=== PATIENT | female | born 1960 | race Hispanic/Latino ===

== ENCOUNTER 2019-11-05 14:06 | Inpatient (IN) | payer MEDICARE ==
[~2019-11-05] VITALS: Ht 157.5 cm; Wt 91.7 kg
[~2019-11-05 14:06] MED LIST: ATORVASTATIN PO; CARVEDILOL12.5 MG PO; ELIQUIS5 MG PO; GLIMEPIRIDE2 MG PO; LEVOTHYROXINE75 MCG PO; NIFEDIPINE ER30 M1 PO; NOVOLIN 70100 UNIT/3 SQ; PANTOPRAZOLE SO20 MG PEG; RENVELA0.8 GM PO; SUCRALFATE1 GM PO
[2019-11-05] MEDS ORDERED: DIATRIZOATE MEGL/DIATRIZOA SOD 30 ML BTL PO ONE (14:45)
[2019-11-05 14:48] LABS: BASOPHILS % 0.6 % (0.0-1.0); EOSINOPHILS # (AUTO) 0.1 (0.0-0.4); EOSINOPHILS % 2.2 % (0.0-6.0); HEMATOCRIT 26.4 % (34.2-44.1); HEMOGLOBIN 8.9 g/dL (12.0-16.0); LYMPHOCYTES # (AUTO) 0.9 (1.0-3.2); MEAN CORPUSCULAR HEMOGLOBIN 32.5 pg (28-32); MEAN CORPUSCULAR HGB CONC 33.7 g/dL (31-35); MEAN CORPUSCULAR VOLUME 96.4 fL (81-99); MONOCYTES # (AUTO) 0.5 (0.2-0.8); MONOCYTES % 7.1 % (4.4-11.3); NEUTROPHILS # (AUTO) 4.9 (2.1-6.9); NEUTROPHILS % 75.6 % (38.7-80.0); PLATELET COUNT 124 x10e3/uL (140-360); RED BLOOD COUNT 2.74 x10e6/uL (3.6-5.1); RED CELL DISTRIBUTION WIDTH 14.7 % (11.7-14.4)
[2019-11-05 15:10] LABS: PROTHROMBIN TIME 13.8 seconds (11.9-14.5)
[2019-11-05 15:14] LABS: CREATINE KINASE MB 8.1 ng/mL (0-5.0)
[2019-11-05 15:16] LABS: ALBUMIN/GLOBULIN RATIO 1.4 (0.8-2.0); ANION GAP 28.6 mmol/L (8-16); CALCIUM 8.5 mg/dL (8.4-10.2); CREATININE, SERUM 19.16 mg/dL (0.57-1.11)
[2019-11-05 15:20] LABS: POTASSIUM 6.6 mmol/L (3.5-5.1)
[2019-11-05] MEDS ORDERED: ALBUTEROL SULF 0.083% NEB SOLN 3 ML NEB NEB STA (15:20)
[2019-11-05] MEDS ORDERED: DEXTROSE 50% SYRINGE 50 ML IV STA (15:20)
[2019-11-05] MEDS ORDERED: CALCIUM CHLORIDE 10% 1.36 MEQ/ML 10ML SYR IV STA (15:20)
[2019-11-05] MEDS ORDERED: SODIUM BICARBONATE 8.4% INJ 50 ML SYR IV STA (15:20)
[2019-11-05] MEDS ORDERED: INSULIN REGULAR, HUMAN 100 UNIT/1 ML 3ML VIAL IV ONE (15:30)
[2019-11-05] MEDS ORDERED: SODIUM CHLORIDE FLUSH 10 ML SYR IV PRN (15:30)
[2019-11-05] MEDS ORDERED: SOD POLYSTYRENE SULFONATE SUSP 15 GM/60 ML BTL PO ONE (15:30)
[2019-11-05] MEDS ORDERED: ASPIRIN 81 MG CHEW TAB PO ONE (15:30)
[2019-11-05] MEDS ORDERED: SODIUM CHLORIDE 0.9% 100 ML ONE (15:42)
[2019-11-05] MEDS ORDERED: CALCIUM GLUCONATE 10% INJ 0.465 MEQ/ML VIAL ONE (15:43)
[2019-11-05] MEDS ORDERED: CALCIUM CHLORIDE 13.6 MEQ in SODIUM CHLORIDE 0.9% 100 ML IV ONE (15:45)
[2019-11-05 16:12] LABS: INFLUENZAE A&B ANTIGEN (RAPID) NEGATIVE (NEGATIVE); STREPTOCOCCUS GRP A ANTIGEN NEGATIVE (NEGATIVE)
--- NOTE | 2019-11-05 17:20 | NUR ---
Recvd patient from ER, AAOx3, Mauritanian speaking, Dialysis nurse aware, patient not in any resp distress, talked to Dr Orlando he said restart her home medications for elevated BP
[2019-11-05 17:21] VITALS: BP 214/95
[2019-11-05 17:30] VITALS: BP 190/85
[2019-11-05] MEDS ORDERED: NON-FORMULARY MEDICATION (Pantoprazole Sodium 40 MG) PEG SCH (17:30)
--- NOTE | 2019-11-05 17:35 | Diagnostic Imaging Report ---
CT of the abdomen and pelvis History: Diarrhea, nausea, vomiting Comparison: None available. Technique: Multidetector CT scanning of the abdomen and pelvis was performed from the level of the lung bases to the inferior pubic ramus, without IV contrast and with oral contrast. DOSE REDUCTION: The examination was performed according to departmental dose-optimization program which includes automated exposure control, adjustment of the mA and/or kV according to patient size and/or use of iterative reconstruction technique. Discussion: The lung bases demonstrate dependent atelectasis. There is a small right pleural effusion. No focal hepatic lesions are identified. The gallbladder is present nondistended. No radiopaque gallstones are identified. There is no intrahepatic or extrahepatic biliary dilatation. The spleen is within normal limits. The bilateral adrenal glands are unremarkable. The pancreas is homogeneous in attenuation. There is no pancreatic ductal dilatation or peripancreatic inflammatory stranding. The kidneys are atrophic. There is no evidence of hydronephrosis or obstructing kidney stones. The stomach, small, and large bowel are nondistended. There is mild focal wall thickening of the cecum which may be secondary to colitis. There are scattered colonic diverticula without evidence of acute diverticulitis. There is no free intraperitoneal air. There is no ascites. The abdominal aorta is of normal course and caliber. The urinary bladder is within normal limits. The uterus is absent. There are no acute osseous abnormalities. IMPRESSION: 1. Mild wall thickening of the cecum which may be secondary to colitis. 2. Atrophic kidneys. 3. Colonic diverticulosis without evidence of acute diverticulitis. 4. Small right pleural effusion. Signed by: Maxi Chavira MD on 11/05/2019 5:32 PM
--- NOTE | 2019-11-05 17:35 | Diagnostic Imaging Report ---
Chest, portable AP view History: Shortness of breath Comparison: No comparisons available for review IMPRESSION: The cardiac silhouette is magnified by portable technique. The lungs demonstrate diffuse interstitial prominence which is likely secondary to edema. Bibasilar atelectasis is present. No pneumothorax. Signed by: Maxi Chavira MD on 11/05/2019 5:31 PM
[2019-11-05] MEDS: NIFEDIPINE CR 30 MG TAB PO SCH (18:00)
[2019-11-05] MEDS: SEVELAMER CARBONATE 800 MG TAB PO SCH ×2 (18:00→23:51)
[2019-11-05] MEDS: CARVEDILOL 12.5 MG TAB PO SCH (18:00)
[2019-11-05] MEDS ORDERED: SODIUM CHLORIDE 0.9% 1000ML 2,000 ML ONE (18:16)
--- NOTE | 2019-11-05 18:27 | NUR ---
PATIENT IS ON DIALYSIS NOW, HOLDING BP MEDICATIONS
--- NOTE | 2019-11-05 19:00 | NUR ---
RECEIVED THE PATIENT IN REPORT.PATIENT IS ON DIALYSIS RIGHT NOW.
[2019-11-05 20:37] VITALS: BP 190/99
[2019-11-05 20:43] VITALS: BP 199/99
[2019-11-05] MEDS ORDERED: ATORVASTATIN 40 MG TAB PO SCH (21:00)
[2019-11-05] MEDS ORDERED: NON-FORMULARY MEDICATION ([Atorvastatin] 80 MG) PO SCH (21:00)
[2019-11-05 22:18] LABS: CREATINE KINASE MB 6.2 ng/mL (0-5.0)
[2019-11-05] MEDS: METOPROLOL TARTRATE INJ 1 MG/ML VIAL IV PRN (23:50)
[2019-11-05] MEDS: SUCRALFATE 1 GM TAB PO SCH (23:51)
[2019-11-05] MEDS: PANTOPRAZOLE SOD 40 MG TABEC PO SCH (23:51)
--- NOTE | 2019-11-05 23:51 | NUR ---
Dialysis completed.3 litre removed.Bp noted 198/82.notified to .received new orders.implemented.keep monitor the patient.
[2019-11-05 23:56] VITALS: BP 198/82
[2019-11-06] VITALS (7 sets, daily range): BP systolic 143–204; BP diastolic 65–98
[2019-11-06] MEDS: METOPROLOL TARTRATE INJ 1 MG/ML VIAL IV PRN ×3 (05:27→11:31)
[2019-11-06] MEDS: LEVOTHYROXINE SODIUM 75 MCG TAB PO SCH (05:35)
[2019-11-06 05:43] LABS: BASOPHILS # (AUTO) 0.1 (0.0-0.1); EOSINOPHILS # (AUTO) 0.1 (0.0-0.4); HEMATOCRIT 27.4 % (34.2-44.1); HEMOGLOBIN 9.2 g/dL (12.0-16.0); LYMPHOCYTES # (AUTO) 0.7 (1.0-3.2); LYMPHOCYTES % 11.9 % (18.0-39.1); MEAN CORPUSCULAR HEMOGLOBIN 32.3 pg (28-32); MEAN CORPUSCULAR HGB CONC 33.6 g/dL (31-35); MEAN CORPUSCULAR VOLUME 96.1 fL (81-99); MONOCYTES # (AUTO) 0.6 (0.2-0.8); MONOCYTES % 9.4 % (4.4-11.3); NEUTROPHILS # (AUTO) 4.5 (2.1-6.9); NEUTROPHILS % 75.4 % (38.7-80.0); PLATELET COUNT 121 x10e3/uL (140-360); RED BLOOD COUNT 2.85 x10e6/uL (3.6-5.1); RED CELL DISTRIBUTION WIDTH 14.6 % (11.7-14.4)
[2019-11-06 06:04] LABS: ALBUMIN 3.6 g/dL (3.5-5.0); ALBUMIN/GLOBULIN RATIO 1.3 (0.8-2.0); ANION GAP 17.7 mmol/L (8-16); CALCIUM 8.9 mg/dL (8.4-10.2); CREATININE, SERUM 9.1 mg/dL (0.57-1.11); POTASSIUM 4.7 mmol/L (3.5-5.1)
--- NOTE | 2019-11-06 06:08 | NUR ---
H&P cc: fatigue PCP Carl Orlando MD, PhD. HPI: 58yoF, on HD for ESRD, developed generalized fatigue, with hyperkalemia and intractable N/V/D. Found to have acute colitis. PMH: ESRD on HD, CKD5 due to DM2, Hypertensive heart ds, HLD, hypothyroidism, CAD, OA, AOCD, s/p blood transfusion PSHx: appendectomy, hysterectomy, ALlergies; see emr FH/SH; no illicits; no etoh Meds; see MAR ROS: no f/c/s/VILLARREAL/cp/sob/dizziness/skin rash/back pain/vision changes. v/s revd PE tired appearing anicteric ns1s2 mod bs soft nt nd no e/t skin dry n. affect right arm bruit/fistula a&ox3; serna labs/meds: revd A/P: Hyperkalemia - needs HD; nephr consult Acute colitis- flagyl/ceftriaxone Acute bacterial diarrhea- flagyl/ceftriaxone Pulmonary edema CKD5 due to Dm2- hab1c/lipids ESRD on HD- HD per nephr Thrombocytopenia- avoid heparin AOCD- monitor Hypertensive heart ds- restart home meds Hypothyroidism- synthroid CAD- BB/statin Prop: apixaban, ppi Carl Orlando MD, PhD.
[2019-11-06] MEDS: CARVEDILOL 12.5 MG TAB PO SCH ×2 (06:11→16:50)
--- NOTE | 2019-11-06 06:17 | NUR ---
BP NOTED 180/93 OR 7O.COREG 25 MG PO GIVEN.KEEP MONITOR THE PATIENT.
[2019-11-06 06:31] LABS: CREATINE KINASE MB 3.4 ng/mL (0-5.0)
[2019-11-06 07:04] LABS: CHOL/HDL RATIO 3.4 (3.0-3.6)
[2019-11-06] MEDS ORDERED: INSULIN ASPART 70/30 100 UNITS/ML VIAL SC SCH (07:30)
[2019-11-06] MEDS ORDERED: GLIMEPIRIDE 2 MG TAB PO SCH (08:00)
[2019-11-06] MEDS ORDERED: INSULIN NPH HUM SQ SCH (08:00)
[2019-11-06] MEDS ORDERED: [UNRECOGNIZED DRUG - OTHER] SQ SCH (08:00)
[2019-11-06] MEDS ORDERED: REG INSULIN SQ SCH (08:00)
[2019-11-06] MEDS: SUCRALFATE 1 GM TAB PO SCH ×3 (08:09→16:50)
[2019-11-06] MEDS: SEVELAMER CARBONATE 800 MG TAB PO SCH ×4 (08:10→20:59)
[2019-11-06] MEDS: APIXABAN 5 MG TABLET PO SCH ×2 (08:10→16:50)
[2019-11-06] MEDS: PANTOPRAZOLE SOD 40 MG TABEC PO SCH ×2 (08:11→20:59)
[2019-11-06] MEDS: NIFEDIPINE CR 30 MG TAB PO SCH ×2 (08:11→16:50)
[2019-11-06] MEDS: HUMULIN 70/30 VIAL SQ SCH ×2 (08:20→16:30)
[2019-11-06] MEDS ORDERED: ONDANSETRON HCL INJ 2MG/ML 2ML 2 MG/ML VIAL IV PRN (08:45)
[2019-11-06] MEDS ORDERED: SODIUM CHLORIDE 0.9% 250ML 250 ML ONE (09:13)
[2019-11-06] MEDS: CEFTRIAXONE SOD 1 GM/NS 50 ML 50 ML IV SCH (09:24)
--- NOTE | 2019-11-06 09:40 | NUR ---
ASSESSMENT: No concerns expressed Sprinkler Worker provided pastoral presence, prayer, hospitality, and supportive listening. WHITNEY SHAH Sprinkler Worker Spiritual Care Department O: [phone]
[2019-11-06] MEDS: METRONIDAZOLE 250MG/NS 50ML 50 ML IV SCH ×2 (10:20→20:59)
--- NOTE | 2019-11-06 13:44 | Consultation ---
DATE OF CONSULTATION: 11/06/2019 HISTORY OF PRESENT ILLNESS: A 59-year-old female, apparently missed 2 sessions of dialysis, presented with weakness, nausea, vomiting, cough, and shortness of breath. Her initial labs show white count 6.4, hemoglobin 8.9. Her potassium level was found to be 6.6 with a bicarb of 14, creatinine of 19.6, and a glucose level 244. Total bilirubin of 0.8. LFTs within normal range. CK of 219. Troponin I of 0.038. The patient was urgently dialyzed and currently, she is still nauseated. She is complaining of nausea and vomiting more than cough. She denies fever and chills. Denies any abdominal pain, but states it is hurting because she has been throwing up. Otherwise, workup in ER included a chest x-ray and a CT scan, shows evidence of possible colitis in the cecal area, gallbladder present, not distended. No radiopaque gallstones identified. Pancreas within normal range. ALLERGIES: NO APPARENT DRUG ALLERGIES. CURRENT MEDICATIONS: The patient is on Zofran p.r.n., ceftriaxone 1 g IV q.24, Flagyl IV q.12, albuterol Atrovent nebulizer, atorvastatin 80 mg at bedtime, which I am going to stop right now, Eliquis 5 mg b.i.d., carvedilol 25 b.i.d., glimepiride 4 mg p.o. b.i.d., which I am going to stop. The patient is not eating and is on insulin sliding scale. She is on nifedipine 60 b.i.d., ondansetron p.r.n., pantoprazole p.r.n., Renagel with meals, Carafate 1 g p.o. before meals, and levothyroxine 75 mcg daily. SOCIAL HISTORY: The patient does not smoke or drink. PAST MEDICAL HISTORY: Type 2 diabetes, hypothyroidism, hypertension, anemia, chronic kidney disease, and end-stage renal disease. LABORATORY DATA: Repeat labs shows resolution of hyperkalemia. Serum sodium was 139, potassium 4.7, bicarbonate 25, and creatinine 9.1. LFTs within normal range. PHYSICAL EXAMINATION: GENERAL: Awake, alert, and oriented x3, sitting up, in no apparent distress. VITAL SIGNS: Blood pressure 174/74, pulse is 67, afebrile. HEAD AND NECK: Cornea clear. Oral mucosa moist. LUNGS: Relatively clear. HEART: S1 and S2 audible. ABDOMEN: Soft and nontender. No apparent visceromegaly. Distended abdomen. EXTREMITIES: Lower extremity, no edema. IMPRESSION AND PLAN: 1. End-stage renal disease and hyperkalemia. No clear-cut evidence of pneumonia. 2. Ongoing nausea and vomiting. I will send an amylase and lipase. 3. Hypertension, poorly controlled, but better. Medications adjusted above. Consider GI evaluation. I will give one dose of Phenergan 12.5 mg IV x1 now. Send an amylase, lipase, scheduled dialysis tomorrow. Renal diet. Please see orders. MD TRELL Guzman/VALENTINO /[id number]
[2019-11-06] MEDS ORDERED: PROMETHAZINE 12.5MG/ NACL 0.9% 12.5 MG/50 ML BAG IV ONE (13:50)
[2019-11-06 15:08] LABS: AMYLASE 56 U/L (25-125); LIPASE 28 U/L (8-78)
[2019-11-06 15:17] LABS: CREATINE KINASE MB 3.4 ng/mL (0-5.0)
[2019-11-07] VITALS (8 sets, daily range): BP systolic 115–172; BP diastolic 56–75
--- NOTE | 2019-11-07 01:30 | NUR ---
Sleeping in the bed.stable condition.phone and call light within reach.
[2019-11-07] MEDS: LEVOTHYROXINE SODIUM 75 MCG TAB PO SCH (05:43)
--- NOTE | 2019-11-07 06:00 | NUR ---
BLOOD SUGAR IS 48 .PROVIDED APPLE JUICE.KEEP MONITOR THE PATIENT.
--- NOTE | 2019-11-07 06:09 | NUR ---
IM- progress note O/N see below ROS: no f/c/s/VILLARREAL/cp/sob/dizziness/skin rash/back pain/vision changes. v/s revd PE tired appearing anicteric ns1s2 mod bs soft nt nd no e/t skin dry n. affect right arm bruit/fistula a&ox3; serna labs/meds: revd A/P: Hyperkalemia - needs HD; nephr consult Acute colitis- flagyl/ceftriaxone Acute bacterial diarrhea- flagyl/ceftriaxone Pulmonary edema CKD5 due to Dm2- hab1c/lipids ESRD on HD- HD per nephr Thrombocytopenia- avoid heparin AOCD- monitor Hypertensive heart ds- restart home meds Hypothyroidism- synthroid CAD- BB/statin Prop: apixaban, ppi 3-25 improving; cont care; Carl Orlando MD, PhD.
--- NOTE | 2019-11-07 07:00 | NUR ---
Bed side shift report given to oncoming Rn.stable condition.
--- NOTE | 2019-11-07 07:30 | NUR ---
PATIENT IS ALERT, AWAKE, AND IN STABLE CONDITION WITH NO S/S OF RESPIRATORY DISTRESS. NO PAIN VOICED. PATIENT IS VISUALLY IMPAIRED. TELEMETRY APPLIED. PATIENT IS DUE TO HAVE DIALYSIS TODAY (CONSENT SIGNED BY PREVIOUS SHIFT). CALL LIGHT IS WITHIN REACH, PATIENT INSTRUCTED TO CALL FOR ASSISTANCE NEEDED.
[2019-11-07] MEDS: CEFTRIAXONE SOD 1 GM/NS 50 ML 50 ML IV SCH (08:00)
[2019-11-07] MEDS: NIFEDIPINE CR 30 MG TAB PO SCH ×2 (08:18→16:15)
[2019-11-07] MEDS: CARVEDILOL 12.5 MG TAB PO SCH ×2 (08:18→16:13)
[2019-11-07] MEDS: HUMULIN 70/30 VIAL SQ SCH ×2 (08:20→16:48)
[2019-11-07] MEDS: SUCRALFATE 1 GM TAB PO SCH ×3 (08:20→16:13)
[2019-11-07] MEDS: APIXABAN 5 MG TABLET PO SCH ×2 (08:20→16:13)
[2019-11-07] MEDS: PANTOPRAZOLE SOD 40 MG TABEC PO SCH ×2 (08:20→21:00)
[2019-11-07] MEDS: SEVELAMER CARBONATE 800 MG TAB PO SCH ×4 (08:20→21:00)
[2019-11-07] MEDS: METRONIDAZOLE 250MG/NS 50ML 50 ML IV SCH ×2 (10:21→21:00)
[2019-11-07 11:52] LABS: ANION GAP 18.9 mmol/L (8-16); CALCIUM 8.1 mg/dL (8.4-10.2); CREATININE, SERUM 11.63 mg/dL (0.57-1.11)
[2019-11-07 12:03] LABS: POTASSIUM 5.9 mmol/L (3.5-5.1)
--- NOTE | 2019-11-07 14:10 | NUR ---
PATIENT STARTED DIALYSIS- PATIENT IN STABLE CONDITION WITH NO S/S OF RESPIRATORY DISTRESS.
--- NOTE | 2019-11-07 18:50 | NUR ---
PATIENT COMPLETED DIALYSIS: 3 LITERS REMOVED. PATIENT IN STABLE CONDITION WITH NO S/S OF RESPIRATORY DISTRESS; NO PAIN VOICED. CALL LIGHT IS WITHIN REACH, PATIENT INSTRUCTED TO CALL FOR ASSISTANCE NEEDED. BEDSIDE SHIFT REPORT GIVEN TO ONCOMING.
--- NOTE | 2019-11-07 19:00 | NUR ---
patient received awake, alert, lying quietly in bed. no c/o pain noted. pm assessment complete. patient instructed to call for assistance when needed.
[2019-11-08] VITALS (8 sets, daily range): BP systolic 128–186; BP diastolic 58–78
[2019-11-08] MEDS: METOPROLOL TARTRATE INJ 1 MG/ML VIAL IV PRN ×2 (00:05→05:35)
--- NOTE | 2019-11-08 00:05 | NUR ---
patient medicated with metoprolol 5mg ivp for bp 186/77 hr 73.
--- NOTE | 2019-11-08 05:35 | NUR ---
Patient medicated with metoprolol 5mg ivp for bp 177/74 hr 70 at this time.
[2019-11-08] MEDS: LEVOTHYROXINE SODIUM 75 MCG TAB PO SCH (05:36)
--- NOTE | 2019-11-08 07:19 | NUR ---
IM- progress note O/N see below ROS: no f/c/s/VILLARREAL/cp/sob/dizziness/skin rash/back pain/vision changes. v/s revd PE tired appearing anicteric ns1s2 mod bs soft nt nd no e/t skin dry n. affect right arm bruit/fistula a&ox3; serna labs/meds: revd A/P: Hyperkalemia - needs HD; nephr consult Acute colitis- flagyl/ceftriaxone Acute bacterial diarrhea- flagyl/ceftriaxone Pulmonary edema CKD5 due to Dm2- hab1c/lipids ESRD on HD- HD per nephr Thrombocytopenia- avoid heparin AOCD- monitor Hypertensive heart ds- restart home meds Hypothyroidism- synthroid CAD- BB/statin Prop: apixaban, ppi 3-25 improving; cont care; 3-26 d/c planning; Carl Orlando MD, PhD.
--- NOTE | 2019-11-08 07:40 | NUR ---
PATIENT IS AWAKE, ALERT, AND IN STABLE CONDITION WITH NO S/S OF RESPIRATORY DISTRESS. PATIENT C/O HEAD PAIN AND IS STATING HER "BLOOD PRESSURE MAY BE HIGH". TELEMETRY APPLIED. CALL LIGHT IS WITHIN REACH OF PATIENT- PATIENT INSTRUCTED TO CALL FOR ASSISTANCE NEEDED.
[2019-11-08 08:10] LABS: ANION GAP 13.3 mmol/L (8-16); CALCIUM 8.4 mg/dL (8.4-10.2); CREATININE, SERUM 6.66 mg/dL (0.57-1.11); POTASSIUM 4.3 mmol/L (3.5-5.1)
[2019-11-08] MEDS: PANTOPRAZOLE SOD 40 MG TABEC PO SCH ×2 (08:22→21:00)
[2019-11-08] MEDS: SEVELAMER CARBONATE 800 MG TAB PO SCH ×4 (08:23→21:00)
[2019-11-08] MEDS: APIXABAN 5 MG TABLET PO SCH ×2 (08:23→16:03)
[2019-11-08] MEDS: CARVEDILOL 12.5 MG TAB PO SCH ×2 (08:23→16:02)
[2019-11-08] MEDS: SUCRALFATE 1 GM TAB PO SCH ×3 (08:23→15:46)
[2019-11-08] MEDS: CEFTRIAXONE SOD 1 GM/NS 50 ML 50 ML IV SCH (08:23)
[2019-11-08] MEDS: NIFEDIPINE CR 30 MG TAB PO SCH ×2 (08:23→16:03)
[2019-11-08] MEDS: HUMULIN 70/30 VIAL SQ SCH ×2 (08:43→16:42)
[2019-11-08] MEDS: METRONIDAZOLE 250MG/NS 50ML 50 ML IV SCH ×2 (09:35→21:00)
[2019-11-08] MEDS ORDERED: EPOETIN ALFA-EPBX 10,000 UNIT/ML VIAL SC ONE (13:45)
--- NOTE | 2019-11-08 14:20 | Progress Note ---
DATE: 11/08/2019 SUBJECTIVE: Had her dialysis yesterday. Feels okay. Hemoglobin is low since I last saw her in the outpatient unit. They actually have switched to erythropoietin/Procrit or Epogen preparations from the [facility]. She is still having trouble with hyperkalemia. Takes Kayexalate only on a roughly twice weekly basis. Had dialysis yesterday, tolerated well. OBJECTIVE: VITAL SIGNS: Blood pressure 128/58, pulse 65, temperature 97.8. EXTREMITIES: Left upper extremity fistula has pain. No edema. ASSESSMENT: Anemia that has been difficult to treat with outpatient protocol for end-stage renal disease, diabetic nephropathy, recurrent hyperkalemia, hyperphosphatemia. PLAN: Keep low salt, low potassium, low phosphorus diet. Keep up with protein intake. I will give her one dose of retacrit because of difficulties with anemia management,particularly on a long-term basis we will request Dr. Lacy to see. Otherwise, plan on dialysis on a usual Tuesday, Tuesday, Tuesday schedule. We will follow along. MD EMMANUELLE BrownK/YOSELINL /[id number] MTDD
[2019-11-08] MEDS ORDERED: ONDANSETRON HCL 4 MG ORAL DISINTEGRATING TAB PO PRN (17:00)
--- NOTE | 2019-11-08 19:00 | NUR ---
patient received awake, alert, lying quietly in bed. no c/o pain noted. pm assessment complete. patient instructed to call for assistance when needed.
--- NOTE | 2019-11-08 19:05 | NUR ---
PATIENT IS AWAKE, ALERT, AND IN STABLE CONDITION WITH NO S/S OF RESPIRATORY DISTRESS. NO PAIN VOICED. CALL LIGHT IS WITHIN REACH OF PATIENT- PATIENT INSTRUCTED TO CALL FOR ASSISTANCE NEEDED. BEDSIDE SHIFT REPORT GIVEN TO ONCOMING NURSE.
[2019-11-09] VITALS (8 sets, daily range): BP systolic 145–174; BP diastolic 65–90
[2019-11-09] MEDS: LEVOTHYROXINE SODIUM 75 MCG TAB PO SCH (05:05)
[2019-11-09 06:14] LABS: CALCIUM 9.2 mg/dL (8.4-10.2); CREATININE, SERUM 8.66 mg/dL (0.57-1.11); PHOSPHORUS 5.5 MG/DL (2.3-4.7)
--- NOTE | 2019-11-09 07:14 | NUR ---
IM- progress note O/N see below ROS: no f/c/s/VILLARREAL/cp/sob/dizziness/skin rash/back pain/vision changes. v/s revd PE tired appearing anicteric ns1s2 mod bs soft nt nd no e/t skin dry n. affect right arm bruit/fistula a&ox3; serna labs/meds: revd A/P: Hyperkalemia - needs HD; nephr consult Acute colitis- flagyl/ceftriaxone Acute bacterial diarrhea- flagyl/ceftriaxone Pulmonary edema CKD5 due to Dm2- hab1c/lipids ESRD on HD- HD per nephr Thrombocytopenia- avoid heparin AOCD- monitor Hypertensive heart ds- restart home meds Hypothyroidism- synthroid CAD- BB/statin Prop: apixaban, ppi 3-25 improving; cont care; 3-26 d/c planning; 3-27 d/c after HD Carl Orlando MD, PhD.
[2019-11-09] MEDS: SUCRALFATE 1 GM TAB PO SCH ×3 (07:30→16:30)
[2019-11-09] MEDS: HUMULIN 70/30 VIAL SQ SCH ×2 (07:30→16:30)
[2019-11-09] MEDS: SEVELAMER CARBONATE 800 MG TAB PO SCH ×4 (07:30→20:28)
--- NOTE | 2019-11-09 08:00 | NUR ---
Morning med pass held as the pt is due for dialysis today. Dr. Portillo visited and asked for a weight on the pt. Her weight today is 208.7 pounds.
[2019-11-09] MEDS: NIFEDIPINE CR 30 MG TAB PO SCH ×2 (09:00→17:00)
[2019-11-09] MEDS: APIXABAN 5 MG TABLET PO SCH ×2 (09:00→17:00)
[2019-11-09] MEDS: CARVEDILOL 12.5 MG TAB PO SCH ×2 (09:00→17:00)
--- NOTE | 2019-11-09 09:38 | Progress Note ---
DATE: 11/09/2019 SUBJECTIVE: Due for dialysis today. She seems quite a bit off her dry weight, although there is no dyspnea. OBJECTIVE: GENERAL: Sitting up, in no distress. VITAL SIGNS: Temperature 97.6, pulse 70, and blood pressure 148/76. CHEST: Clear. EXTREMITIES: No edema. Left upper extremity AV fistula is patent. LABORATORY DATA: Phosphorus down to 5.5, which is pretty good for her. Hemoglobin is coming up to 9.2. She got one dose of Retacrit yesterday. Creatinine 8.6, BUN 47, and potassium of 5.0. ASSESSMENT: 1. End-stage renal disease, recurrent hyperkalemia. 2. Hyperphosphatemia. 3. Secondary hyperparathyroidism. 4. Underlying diabetic hypertensive end-organ damage. PLAN: 1. Hemodialysis today. We will try to take up 4-5 L at least depending on how she tolerates it. 2. Two potassium bath. 3. I also asked her to take her binders regularly. Low potassium and low phosphorus diet, as that seems to work. 4. Await Hematology evaluation due to difficulty in correcting her anemia in the past on an outpatient basis. 5. Outpatient prescription to [facility] in [place] has been called in for every other day, Kayexalate 30 g. MD EMMANUELLE BrownK/YOSELINL /[id number]
[2019-11-09] MEDS: PANTOPRAZOLE SOD 40 MG TABEC PO SCH ×2 (10:18→20:28)
[2019-11-09] MEDS: CEFTRIAXONE SOD 1 GM/NS 50 ML 50 ML IV SCH (10:18)
[2019-11-09] MEDS: METRONIDAZOLE 250MG/NS 50ML 50 ML IV SCH ×2 (10:29→20:28)
[2019-11-09] MEDS ORDERED: EPOETIN ALFA-EPBX 10,000 UNIT/ML VIAL SC SCH (14:00)
--- NOTE | 2019-11-09 20:00 | NUR ---
Received change of shift report from AM nurse. Walking rounds completed.
--- NOTE | 2019-11-09 22:08 | NUR ---
Patient uruguayan speaking and alert and orientated. Denies pain at this time. C/O being cold but temp at 97.0 Warm blanket given. Continue monitor.
[2019-11-09] MEDS: METOPROLOL TARTRATE INJ 1 MG/ML VIAL IV PRN (22:47)
--- NOTE | 2019-11-09 23:00 | NUR ---
Called [facility] regarding dialysis for patient. Left mess. with Lisa. She states someone will call me back. Dr Orlando aware that patient has not received dialysis and not d/c home due to no dialysis. Waiting for call back.
[2019-11-09] MEDS ORDERED: ZOLPIDEM TARTRATE 5 MG TAB PO PRN (23:30)
[2019-11-09] MEDS ORDERED: ZOLPIDEM TARTRATE 10 MG TAB PO PRN (23:30)
--- NOTE | 2019-11-09 23:30 | NUR ---
Patient BP elevated at 184/85. Given BP meds as ordered by MD. BP down to 148/52. Patient c/o of feeling as if her BP dropped. Dr Almanza on the floor S/W patient and ordered EKG and cardiac enz. Orders completed. EKG wnl.
[2019-11-10] VITALS: BP 124/60
[2019-11-10] MEDS ORDERED: ASPIRIN 81 MG CHEW TAB PO ONE (00:15)
--- NOTE | 2019-11-10 00:29 | NUR ---
Checked blood glucose 132.
[2019-11-10 01:23] LABS: CREATINE KINASE MB 1.3 ng/mL (0-5.0)
[2019-11-10 04:00] VITALS: BP 117/68
[2019-11-10] MEDS: LEVOTHYROXINE SODIUM 75 MCG TAB PO SCH (05:34)
--- NOTE | 2019-11-10 06:37 | NUR ---
Second call to [facility] for dialysis for patient left mess. with Natalie. Waiting for a call back.
--- NOTE | 2019-11-10 06:59 | NUR ---
D/C summary Principal Dx: Hyperkalemia - needs HD; nephr consult Acute colitis- flagyl/ceftriaxone Acute bacterial diarrhea- flagyl/ceftriaxone Pulmonary edema Secondary Dx: CKD5 due to Dm2- hab1c/lipids ESRD on HD- HD per nephr Thrombocytopenia- avoid heparin AOCD- monitor Hypertensive heart ds- restart home meds Hypothyroidism- synthroid CAD- BB/statin Prop: apixaban, ppi 3-25 improving; cont care; 3-26 d/c planning; 3-27 d/c after HD d/c home f/u pcp 1 week stable d/c>35mins Carl Orlando MD, PhD.
[2019-11-10 08:00] VITALS: BP 157/69
[2019-11-10] MEDS: CEFTRIAXONE SOD 1 GM/NS 50 ML 50 ML IV SCH (08:00)
[2019-11-10] MEDS: SUCRALFATE 1 GM TAB PO SCH ×2 (08:46→15:19)
[2019-11-10] MEDS: SEVELAMER CARBONATE 800 MG TAB PO SCH ×2 (08:46→15:19)
[2019-11-10] MEDS: HUMULIN 70/30 VIAL SQ SCH (08:50)
[2019-11-10] MEDS: NIFEDIPINE CR 30 MG TAB PO SCH (08:51)
[2019-11-10] MEDS: PANTOPRAZOLE SOD 40 MG TABEC PO SCH (08:51)
[2019-11-10] MEDS: APIXABAN 5 MG TABLET PO SCH (08:51)
[2019-11-10] MEDS: CARVEDILOL 12.5 MG TAB PO SCH (08:51)
[2019-11-10] MEDS: METRONIDAZOLE 250MG/NS 50ML 50 ML IV SCH (09:00)
--- NOTE | 2019-11-10 11:36 | Progress Note ---
DATE: 11/10/2019 Nephrology followup note SUBJECTIVE: The patient did not appear to be in any acute distress and was getting dialysis. She apparently missed dialysis yesterday. She denies any nausea, vomiting, chest pain, or shortness of breath. OBJECTIVE: VITAL SIGNS: Stable. CHEST: Fair air entry. HEART: S1, S2. ABDOMEN: Soft. Bowel sounds are positive. EXTREMITIES: No significant edema. WEB PRODUCER: She was awake and alert. LABORATORY DATA: There were no labs from today. IMPRESSION: 1. End-stage renal disease, on hemodialysis on Tuesday, Tuesday, Tuesday schedule, but she missed dialysis yesterday, so she is being dialyzed right now. 2. Secondary hyperparathyroidism. PLAN: On dialysis now for 4 hours for UF of 4-5 L, 2 potassium bath, 35 bicarb, 2.5 calcium. After dialysis, if she is stable, she can be discharged. Rg Younger MD SA/VALENTINO /[id number]
[2019-11-10 12:00] VITALS: BP 139/68
--- NOTE | 2019-11-10 14:47 | NUR ---
Nutrition Screen Note RD Recommendation for Physician: -Rec changing diet to renal/ ADA 1800 Plan of Care: RD following, monitoring for tolerance and adequacy Nutrition reason for involvement: LOS Primary Diagnose(s): Acute colitis, hyperkalemia, weakness PMH: ESRD on HD, DM, Hypertensive heart dz, HLD, hypothyroidism, CAD, OA Ht: 62in Wt: 202.06lb BMI: 37.0kg/m2 IBW: 110lb +/- 10% RD Assessment: (11/09) Chart reviewed. Labs and meds reviewed. 59yo F, who was admitted for weakness and hyperkalemia. Pt was receiving HD during my visit. Per RN Herlinda, pt has been eating well today without any GI complains. Plan to d/c today once HD is completed. No other nutrition concern at this time. Current Diet: Cardiac diet Malnutrition Evaluation (11/09) The patient does not meet criteria for a specified degree of malnutrition at this time. Will re-evaluate at follow-up as appropriate. Diet Education Needs Assessment: Diet education not indicated. Nutrition Care Level: low Signed: Danielle Rose, MS, RD, LD
--- NOTE | 2019-11-10 16:30 | NUR ---
PT discharged home at this time. Pt had hemodialysis today and 3L were removed. Left fistula has pressure dressing and is dry. Pt verbalized understanding of all discharge instructions and all follow up appointments.
--- NOTE | 2019-12-11 09:26 | Consultation ---
DATE OF CONSULTATION: 12/10/[address] Darion Henry. HISTORY OF PRESENT ILLNESS: Ms. Hughes is a 59-year-old Latin-Honduran female referred to me for evaluation of anemia. SOCIAL HISTORY: Noncontributory. FAMILY HISTORY: Noncontributory. ALLERGIES: REPORTED NONE. MEDICATIONS: At this time: 1. Insulin. 2. Ceftriaxone. 3. Metronidazole. 4. Sodium chloride. 5. Coreg. 6. Nifedipine. 7. Carafate. 8. Sevelamer. 9. Synthroid. 10. Protonix. 11. Metoprolol. 12. Ondansetron. REVIEW OF SYSTEMS: HEENT: Normal. Cardiac: Hypertension. RESPIRATORY: History of effusion. GI: History of gastritis. : History of chronic renal failure. MUSCULOSKELETAL: Normal. SKIN AND BREASTS: Normal. NEUROENDOCRINE: History of hypothyroidism and history of diabetes. PHYSICAL EXAMINATION: GENERAL: A moderately built female, anemic, no adenopathy. HEART: Within normal limits. LUNGS: Diminished breath sounds at both bases. Breast exam normal. ABDOMEN: Obese. RECTAL: Deferred. VAGINAL: Deferred. CENTRAL NERVOUS SYSTEM: Essentially normal. LABORATORY DATA: Lab shows a hemoglobin of 8.9, sodium of 134, potassium of 6.6, BUN and creatinine 133 and 19.16. CPK high 219, BNP at 1277.9, total protein is low at 6.4, and calcium low at 8.1. The patient has diverticulosis coli on imaging, also right pleural effusion. IMPRESSION: 1. Anemia of chronic disease. 2. Hyponatremia. 3. Hyperkalemia. 4. Chronic renal failure. 5. Diabetes mellitus. 6. High CK. 7. Congestive heart failure. 8. Hypoproteinemia. 9. Hypocalcemia. 10. Cecal wall thickening by imaging. 11. Diverticulosis coli. 12. Right-sided pleural effusion. 13. Hypothyroidism. 14. History of hypertension. 15. Gastroenteritis. PLAN: Common since suggest stool for occult blood, suggest ferritin level, suggest Procrit along with the dialysis, which she is getting. The patient should have a colonoscopy eventually the cecal wall thickening. I will be more than happy to follow this patient as outpatient, the patient is referred to me as outpatient. The patient was discharged on 11/10/2019. Thank you very much for allowing me to participate in the management of this patient. MD AMIRA Trimble/VALENTINO /[id number]
== END 2019-11-10 16:30 | disposition home or self-care (01) | DRG 371 ==
LOC: ER 14:06 → ERHOLD 15:28 → MED/SURG3 17:07
PROVIDERS: ADMIT Internal Medicine; ATTEND Internal Medicine
PROC: 5A1D70Z Performance of Urinary Filtration, Intermittent, Less than 6 Hours Per Day (ICD-10-PCS; principal; 2019-11-05)
PROC: 5A1D70Z Performance of Urinary Filtration, Intermittent, Less than 6 Hours Per Day (ICD-10-PCS; 2019-11-07)
PROC: 5A1D70Z Performance of Urinary Filtration, Intermittent, Less than 6 Hours Per Day (ICD-10-PCS; 2019-11-10)
DX: A04.9 Bacterial intestinal infection, unspecified (principal); N18.6 End stage renal disease; I13.11 Hypertensive heart and chronic kidney disease without heart failure, with stage 5 chronic kidney disease, or end stage renal disease; J81.1 Chronic pulmonary edema; N25.81 Secondary hyperparathyroidism of renal origin; E87.1 Hypo-osmolality and hyponatremia; E87.5 Hyperkalemia; D69.6 Thrombocytopenia, unspecified; E03.9 Hypothyroidism, unspecified; E11.22 Type 2 diabetes mellitus with diabetic chronic kidney disease; E78.5 Hyperlipidemia, unspecified; E87.6 Hypokalemia; E83.39 Other disorders of phosphorus metabolism; I25.119 Atherosclerotic heart disease of native coronary artery with unspecified angina pectoris; M19.90 Unspecified osteoarthritis, unspecified site; E11.21 Type 2 diabetes mellitus with diabetic nephropathy; Z79.4 Long term (current) use of insulin; D63.8 Anemia in other chronic diseases classified elsewhere
CPT/HCPCS: 36415; 71045; 74176; 80048; 80053; 80061; 82150; 82550; 82553; 82728; 82948; 83036; 83518; 83690; 83880; 84100; 84484; 85025; 85610; 87070; 87340; 87400; 90962; 93005; 99284; J0610; J0696; J1815; J1817; J2405; J2550; J7030; J7050; J7799